=== PATIENT | female | born 1965 | race African-American/Black ===

== ENCOUNTER 2016-11-18 06:22 | Emergency (ER) | payer OTHER ==
[~2016-11-18 06:22] MED LIST: ADVIL PO; MULTIVIT/MIN PO; P10 PO; VITC500 PO; ZOVIRAX400 MG PO
== END 2016-11-18 06:58 | disposition home or self-care (01) ==
LOC: ER 06:22
DX: M54.42 Lumbago with sciatica, left side (principal); Z79.52 Long term (current) use of systemic steroids; Z79.899 Other long term (current) drug therapy
CPT/HCPCS: 96372; 99283; A9270-GY; J1170; J1885; J2550